=== PATIENT | female | born 1970 | race African-American/Black ===

== ENCOUNTER → 2016-11-19 | Day surgery (SDC) | payer MEDICAID ==
[~2016-11-19] VITALS: Ht 170.2 cm; Wt 108.9 kg
[~2016-11-19] MED LIST: BENA40TA3 PO; HYDR25TA PO; NIFE60TA64 PO; TOPI50TA21 PO
[2016-11-19 12:03] LABS: GLUCOSE CSF 82 mg/dL (41-75)
== END | disposition home or self-care (01) ==
LOC: RAD 09:49
PROVIDERS: ATTEND Psychiatry & Neurology Neurology
DX: G35 Multiple sclerosis (principal)
CPT/HCPCS: 62270; 77003; 82945; 82962; 84157; 87070; 87205; 89050

== ENCOUNTER → 2020-09-12 | Outpatient (CLI) | payer MEDICAID ==
[~2020-09-12] MED LIST changes: -BENA40TA3 PO; +BENA40TA9 PO; +GLIM2TAB30 PO; +HYDR12.54 PO; +METF-414 PO; +SITA100T11 PO; -TOPI50TA21 PO; +TOPI50TA24 PO
== END | disposition home or self-care (01) ==
LOC: LAB 11:38
PROVIDERS: ATTEND Internal Medicine Gastroenterology
DX: Z20.822 Contact with and (suspected) exposure to COVID-19 (principal)
CPT/HCPCS: 87426

== ENCOUNTER → 2020-09-15 | Day surgery (SDC) | payer MEDICAID ==
[~2020-09-15] VITALS: Ht 167.6 cm; Wt 81.6 kg
[~2020-09-15] MED LIST changes: +HYDROMORPHONE HCL/PF 2MG/ML CPJ IV PRN; +LABETALOL 5MG/ML SYR 20 MG/4 ML SYRINGE IV PRN; +MEPERIDINE HCL/PF 25MG/ML CPJ IV PRN; +ONDANSETRON HCL 4MG/2ML INJ IV PRN; +PROPOFOL 200MG/20ML VIAL IV ONE; +SODIUM CHLORIDE 0.9% 1,000 ML IV SCH
[2020-09-15 10:09] LABS: BASOPHILS % 1.3 % (0.0-2.0); EOSINOPHILS % 1.6 % (0.0-5.0); HEMATOCRIT. 36.1 % (36.0-48.0); HEMOGLOBIN. 12.1 g/dL (12.0-16.0); LYMPHOCYTES % 39.6 % (20.0-50.0); MEAN CORPUSCULAR HEMOGLOBIN 30.4 pg (28.0-32.0); MEAN CORPUSCULAR VOLUME 90.4 fL (81.0-99.0); MEAN PLATELET VOLUME 7.5 fl (7.4-10.4); MONOCYTES % 7.7 % (2.0-8.0); NEUTROPHILS % 49.8 % (40.0-76.0); PLATELET 341 x1000/uL (130-400); RED CELL DISTRIBUTION WIDTH 13.9 % (11.6-14.6)
[2020-09-15 10:17] LABS: CHLORIDE 108 mEq/L (98-107)
[2020-09-15 10:35] LABS: UCG SCREEN NEGATIVE
== END | disposition home or self-care (01) ==
LOC: OR 09:20
PROVIDERS: ATTEND Internal Medicine Gastroenterology
DX: Z12.11 Encounter for screening for malignant neoplasm of colon (principal); K57.30 Diverticulosis of large intestine without perforation or abscess without bleeding; K62.1 Rectal polyp; K63.89 Other specified diseases of intestine; I10 Essential (primary) hypertension; E11.9 Type 2 diabetes mellitus without complications; E66.01 Morbid (severe) obesity due to excess calories; K21.9 Gastro-esophageal reflux disease without esophagitis; Z79.84 Long term (current) use of oral hypoglycemic drugs; Z79.899 Other long term (current) drug therapy; Z98.890 Other specified postprocedural states
CPT/HCPCS: 36415; 45385; 80048; 81025; 82962; 85025; 88305; J2704